=== PATIENT | male | born 2000 | race Caucasian/White ===

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

== ENCOUNTER 2022-10-14 09:06 | Emergency (ER) | payer BC, OTHER, SELFPAY ==
[2022-10-14 09:20] VITALS: BP 115/72; PULSE 69; RESP 16; TEMP 36.9; O2SAT 99; BMI 29.8
--- NOTE | 2022-10-14 09:37 | ED_ITS ---
HPI - URI/Sore Throat General: Chief Complaint: Upper Respiratory Infection Stated Complaint: throat pain Time Seen by Provider: 10/14/22 09:12 Source: patient and family (mother) Mode of arrival: ambulatory Limitations: no limitations History of Present Illness: Patient is a 22-year-old male who presents to ED today along with his mother for concerns of throat/tongue pain. Patient states he initially began having symptoms approximately 2 weeks or so ago. He states he was initially seen at [facility] and told it was most likely viral pharyngitis (strep performed which was negative) given instructions for conservative therapies at home. He states he was subsequently seen at one of the [facility] walk-in clinics placed on Amoxicillin. He admittedly has not taken this medication as prescribed as it was for 10 days and he is now on day 16 and has approximately 3 days worth of pills left. He states he continued having pain therefore followed up at the same [facility] clinic again and was placed on nystatin for possible thrush. He was also given IM Dexamethasone. He does feel like the nystatin helps numb his tongue and back of his throat only temporarily. He feels like pain is worse at night. Patient has been able to continue to eat and drink and take his medication. Has not noticed any drooling, muffled voice. He has never had any fevers. Denies neck pain. Never had any oral sores/lesions. He does state when symptoms first started it was associated with hoarseness but that this has subsided. MD elicited complaint: sore throat Onset (ago): week(s) Consistency: constant Severity: moderate Able to tolerate fluids by mouth: Yes Exacerbating factors: swallowing Relieving factors: other (nystatin ) Associated symptoms: Reports no associated symptoms; Deny chills, chest pain, ear or mastoid pain, fever(s), headache(s), nasal congestion, nausea, sinus pain or vomiting Treatments prior to arrival: antibiotics Review of Systems Const: Denies: fever(s), chills, body aches, fatigue or malaise Eyes: Denies: change in vision, blurry vision, photophobia, floaters or seeing flashes ENMT: Reports: throat pain, odynophagia and hoarseness (subsided now); Denies: uvular edema, mouth pain, swelling of lips/tongue, oral sores, dental pain, halitosis, ear or mastoid pain, nasal discharge, nasal congestion or sinus pain Card: Denies: chest pain Resp: Denies: dyspnea GI: Denies: nausea or vomiting Musc: Denies: neck pain Skin/Breast: Denies: rash Neuro: Denies: headache(s) PFSH ED PFSH: Family History Grandfather Diabetes Social History Smoking and tobacco status: never smoked Alcohol intake: never Physical Exam Const: COMMON NORMALS: no acute distress, average body habitus, patient oriented x3, no limitations, healthy appearing, alert and well nourished GEN ERAL APPEARANCE: cooperative ORIENTATION/CONSCIOUSNESS: Yes awake, Yes oriented to person, Yes oriented to place and Yes oriented to time HENMT: COMMON NORMALS: normocephalic, atraumatic, hearing grossly normal bilaterally, external ears normal, EAC's normal, TM's normal bilaterally, Normal external nose present, Normal nasal mucous membranes and turbinates present, moist oral mucous membranes, oropharynx normal, dentition normal and gingiva normal HEAD & SCALP: normal to inspection, normocephalic and atraumatic FACE & SINUS: normal facial exam, sinuses nontender and face symmetric NOSE: Normal external nose present and Normal nasal mucous membranes and turbinates present EXTERNAL EAR: Yes external ears normal EXTERNAL AUDITORY CANAL: EAC's normal TYMPANIC MEMBRANE: TM's normal bilaterally MOUTH: Normal oral and palatal mucosa present, lip normal and tongue normal; no audible dysphonia and no drooling TEETH & GINGIVA: Yes fair dentition THROAT: posterior oropharynx normal, uvula midline and other (mild tonsillar hypertrophy-could be normal variant; no erythema/exudates); no uvular edema Eye: COMMON NORMALS: Equal, round and reactive pupils present, EOMs intact bilaterally and conjunctivae normal GENERAL EYE: appearance normal, both eyes and all related structures and normal light reflex CONJUNCTIVA: Yes conjunctivae normal PUPIL: Yes Equal, round and reactive pupils present DIRECT OPHTHALMOSCOPY: Yes normal light reflex Neck/C-Spine: COMMON NORMALS: full ROM, no lymphadenopathy and supple GENERAL: Yes normal visual inspection, No anterior neck swelling and No submandibular swelling Resp: COMMON NORMALS: normal respiratory effort and clear to auscultation bilaterally AUSCULTATION: clear to auscultation bilaterally Cardio: COMMON NORMALS: regular rate and regular rhythm RATE: regular rate RHYTHM: regular rhythm Extremity: GENERAL: Yes normal exam except as noted Neuro: PAPO COMA SCALE: document GCS findings Papo coma scale eye opening: Spontaneous Perry coma scale verbal response: Orientated Perry coma scale motor response: Obey commands Perry coma scale total score: 15 COMMON NORMALS: patient oriented x3 and CN's II-XII intact bilaterally SENSORIUM/ORIENTATION: Yes alert, Yes oriented to person, Yes oriented to place and Yes oriented to time Course Vital Signs: Vital signs: Vital Signs Temperature 98.4 F 10/14/22 09:20 Pulse Rate 69 10/14/22 09:20 Respiratory Rate 16 10/14/22 09:20 Blood Pressure 115/72 10/14/22 09:20 Pulse Oximetry 99 10/14/22 09:20 Oxygen Delivery Me thod Room Air 10/14/22 09:20 MDM - URI/Sore Throat Medical Decision Making Patient here with complaints of a sore throat and tongue pain for approximately 2 weeks or so now. On exam I do not appreciate anything other than some mild bilateral tonsillar hypertrophy-this could be normal variant. He has no signs or symptoms on history or physical exam to suggest peritonsillar abscess or retropharyngeal/deep space abscess. Surprisingly he is receiving quite a bit of benefit from nystatin swishes. He was/is noncompliant with his current antibiotic therapy for possibility of failed treatment. Mother has called ENT in [place] who is going to see him on Friday. I think at this time we will place him on a new antibiotic prescription and give him viscous lidocaine to help with his discomfort. I feel he is stable for discharge from the ED with follow-up with ENT. Strict return ED precautions given. Discharge Plan Discharge Patient Disposition: Home Clinical Impression: Pain in throat Condition: Stable Prescriptions: New Lidocaine Viscous 2 % solution 15 ml mucous membrane QID Qty: 100 0RF Rx Instructions: Mix with water and swish for 30-60 seconds, then spit azithromycin 250 mg tablet See Rx Instructions .ROUTE .COMPLEX Qty: 6 0RF Rx Instructions: take 500 mg today (day 1), then 250 mg for 4 days (days 2-5) No Action nystatin 100,000 unit/mL suspension 1 ml PO QID 7 Days Qty: 60 0RF Rx Instructions: swish and swallow amoxicillin 875 mg tablet 875 mg PO BID ibuprofen 200 mg Tablet 1,200 mg PO Q6H PRN (Reason: Pain) Discharge Orders: Discharge ED (Routine); Ordered 10/14/22 Ordered By: May Quijano Activity Restrictions/Additional Instructions: As we discussed please follow-up with ENT on Friday as scheduled. You may return to the emergency department for worsening or uncontrollable pain, difficulty or inability to swallow, trouble controlling your saliva/drooling, fevers, muffled sounding voice, swelling to your face or neck, or any other concerns you may have. Coding Level of Care Code ED Coating Technician for Rosa Allen
--- NOTE | 2022-10-14 12:25 | DCPLANNER ---
Addendum entered by Jemma Pope 10/18/22 10:42: this appointment was cancelled Addendum entered by Jemma Pope 10/16/22 10:44: Patient has a follow up appointment scheduled for Friday, October 16, [address]22 at 4:[address] Casiano at [facility]. Original Note: manager renewable energy had message to schedule a follow up appointment for patient for [facility]. manager renewable energy sent patients information to the front office staff at ENT. Patients information will be printed and reviewed. Clinic will call patient with appointment information.
--- NOTE | 2022-10-16 10:24 | DCPLANNER ---
manager health called patient due to no primary care physician - patient declines at this time, but if he changes his mind and would like help will call pillowcase cleaner for help in getting established with a primary care physician.
== END 2022-10-14 10:21 | disposition home or self-care (01) ==
PROVIDERS: Emergency Provider Physician Assistant
DX: R07.0 Pain in throat (principal)
CPT/HCPCS: 99283